=== PATIENT | female | born 1975 | race Asian ===

== ENCOUNTER 2017-04-23 18:23 | Outpatient (CLI) | payer BC ==
[~2017-04-23] VITALS: Ht 170.2 cm; Wt 75.0 kg
[2017-04-23 18:40] VITALS: Ht 170.2 cm; Wt 75.0 kg
[2017-04-23] MEDS ORDERED: PREN-93 PO (18:40)
[2017-04-23 18:41] VITALS: BP 97/68; PULSE 79; RESP 18
--- NOTE | 2017-04-23 19:32 | RADRPT ---
PROCEDURE: US OB. CLINICAL INDICATION: Estimated weight, low baseline. Clinical estimate gestational age is 3 8 weeks 4 days with estimated date of delivery 05/03/2017 TECHNIQUE: Multiple sonographic images of the pelvis were obtained. The images were reviewed on a PACS workstation. COMPARISON: No prior studies are available for comparison. FINDINGS: There is a single live intrauterine gestation. Cardiac activity is present with 148 beats per minut e. There is a cephalic position. Measurements were made in order to determine age. The results are as follows: BPD =9.7 cm, 39 weeks 5 days HC =34.12 cm, 39 weeks 2 days AC =34.13 cm, 38 weeks 0 days FL =7.46 cm, 38 weeks 1 day. Estimated gestational age of approximately 38 weeks 6 days. The estimated date of delivery is 05/01/2017. The EFW = 3488 g, 7 pounds 11 ounces, 62.6% The placenta is anterior and grade II. There is no evidence for an abruption. IMPRESSION: Single live intrauterine gestation of approximately 38 weeks 6 days based on ultrasound measurements . The estimated date of delivery is 05/01/2017 . RPTAT: HJES .Crow Shrestha MD, MD Date Time Electronically viewed and signed by .Crow Shrestha MD, on 04/23/2017 19:32 .S/
--- NOTE | 2017-04-23 19:32 | RADRPT ---
PROCEDURE: US OB biophysical profile. CLINICAL INDICATION: Evaluate well-being TECHNIQUE: Multiple sonographic images of the pelvis were obtained. The images were reviewed on a PACS workstation. COMPARISON: None FINDINGS: There is a single viable intrauterine gestation. There is a normal amount of amniotic fluid with an VINOD = 12.7 cm . Cardiac activity is present with 138 beats per minute There is a vertex presentation. The placenta is anterior. Biophysical profile: movement 2/2 tone 2/2. breathing 2/2 VINOD 2/2 Total 12/18 IMPRESSION: 1. Normal biophysical profile of 12/18. 2. Single viable intrauterine gestation in cephalic presentation. RPTAT:AAJJ Physician Lily Date Time Electronically viewed and signed by Physician Lily on 04/23/2017 19:32 /
--- NOTE | 2017-04-23 19:47 | PN ---
Triage Information Date/Time [birth year]/23/1704/28/1939 Reason for visit: low base line 120'2 with no acceleration with external stimulation Weeks of Gestation IUP 38w5d /Para Diabetes: none Hypertention: none Objective Vital Signs Date Time Temp Pulse Resp B/P Pulse Ox O2 Delivery O2 Flow Rate FiO2 04/23/17 18:41 98.3 79 18 97/68 98 Room Air Heart Rate: 120's Heart Rate Comments cat I tracing Contractions: >10 Minutes Apart Results/Medications Imaging Results BPP 8/8 NST reactiv VINOD 12.4 EFW 3400 > 60% Disposition: Discharge Assessment/Plan IUP 38w5d cat I tracing with BPP 8/8 Plan neonatalogy consutation regrading GBS pos patient who is reluctant to receive antibiotics Dr Patricio connected to patient for phone consultation see her at office in one week HAVEN VAUGHAN MD Apr 23, 2017 19:47
--- NOTE | 2017-04-23 20:54 | CONS ---
Date/Time of Note Date/Time of Note DATE: 04/23/17 TIME: 20:40 Assessment/Plan Assessment/Plan Additional Assessment/Plan Spoken to mom on phone and explained about risk for GBS sepsis with GBS positive vaginal culture and need for prophylactic antibiotics to minimise the risk for GBS sepsis and meningitis which could prove fatal . mom said ,she reviewed recommendations on website with GBS positive culture and does not want antibiotics unless we guarantee no chance for GBS sepsis, which can not be done . I called and updated about above conversation and answered her questions. Consultation Date/Type/Reason Admit Date/Time 04/23/1704/28/1939 Date of Consultation: Apr 23, 2017 Reason for Consultation GBS positive mom , 42yr old ,G1 admitted for low heart rate with no acceleration. gestational age 38 and 5/7 weeks. membranes intact . refused prophylactic antibiotics. Dr. Jesus Doyle requested the consult. Constitutional: improved, no complaints Eyes: no complaints ENT: no complaints Respiratory: no complaints Cardiovascular: no complaints Gastrointestinal: no complaints Genitourinary: no complaints Musculoskeletal: no complaints Skin: no complaints Neurologic: no complaints Endocrine: no complaints Lymphatic: no complaints Psychological: nl mood/affect, no complaints Immunologic: no complaints Social History Smoking Status: Never smoker Exam/Review of Systems Vital Signs Vitals Vital Signs Date Time Temp Pulse Resp B/P Pulse Ox O2 Delivery O2 Flow Rate FiO2 04/23/17 18:41 98.3 79 18 97/68 98 Room Air JAIR MAYES MD Apr 23, 2017 20:54
--- NOTE | 2017-04-23 21:10 | TRIAGE ---
OB Triage Datetime Report Generated by CPN: 04/23/2017 21:09 Datetime: 04/23/2017 19:53 Stage of : OB Triage Labor Evaluation Frequency: None noted or palpated Monitor Mode: External Resting Tone [place]: Relaxed Heart Rate FHR Baseline Rate: 140 Monitor Mode: External US Variability: Moderate 6-25 bpm Accelerations: 15X15 Decelerations: None Category: Category I Datetime: 04/23/2017 18:36 Assessment Type: Triage Maternal Assessment Level of Consciousness: Fully Conscious DTR's/Clonus: DTRs 2+; No Clonus Headache: Denies Blurred Vision: No Respiratory Effort: Unlabored; Regular Rhythm; Equal Expansion Breath Sounds, Left: Clear and Equal Breath Sounds, Right: Clear and Equal Nausea/Vomiting: Denies RUQ Epigastric Pain: Denies Lower Extremities Edema: None Degree: None Upper Extremities Edema: None Degree: None Facial Edema: None Fall Risk Assessment History of Falling: (0) No Secondary Diagnosis: (0) No Ambulatory Aid: (0) Bedrest/Nurse Assist IV Therapy: (0) No Gait: (0) Normal/Bedrest/Immobile Mental Status: (0) Oriented to Own Ability Fall Score: 0 Fall Risk Score Definition: No Risk: No action required Datetime: 04/23/2017 18:35 EGA: 38.4 Datetime: 04/23/2017 18:34 Time of Arrival: 04/23/2017 18:10 Arrived By: Ambulatory Arrived From: Home Chief Complaint: pt here for eval. of low baseline Movement: Present Contractions: Denies/Absent Rupture of Membranes: Denies Vaginal Bleeding: None Vaginal Discharge: Denies Recent Sexual Intercouse: Denies Abdominal Trauma: Not Applicable Patient Complaints: None Time Provider Notified: 04/23/2017 18:35 Provider Notified: ALEXUS Initial Plan: NST/BPP/EFW Datetime: 04/23/2017 18:33 Monitor Mode: External Monitor Mode: External US
== END 2017-04-23 20:01 | disposition home or self-care (01) ==
LOC: OBT 18:23 → L-D 18:25 → OBT 20:01
PROVIDERS: ATTEND Obstetrics & Gynecology
DX: O26.893 Other specified pregnancy related conditions, third trimester (principal); Z3A.38 38 weeks gestation of pregnancy; R00.1 Bradycardia, unspecified
CPT/HCPCS: 76815; 76818; G0463

== ENCOUNTER 2017-05-03 08:16 | Inpatient (IN) | payer BC ==
[~2017-05-03] VITALS: Ht 170.2 cm; Wt 76.1 kg
[~2017-05-03 08:16] MED LIST: PREN-93 PO
[2017-05-03 08:32] VITALS: Ht 170.2 cm; Wt 76.1 kg
[2017-05-03 08:33] VITALS: BP 114/74; PULSE 98
[2017-05-03] MEDS ORDERED: LIDOCAINE 1% (MPF) 30 ML INJ INJ PRN (09:30)
[2017-05-03] MEDS ORDERED: METHYLERGONOVINE 0.2 MG INJ IM PRN (09:30)
[2017-05-03] MEDS ORDERED: CARBOPROST 250 MCG INJ IM PRN (09:30)
[2017-05-03] MEDS ORDERED: BUTORPHANOL 2 MG INJ IV PRN ×2 (09:30)
[2017-05-03] MEDS ORDERED: OXYTOCIN 30 UNITS/LR 500 ML IV SCH ×2 (09:30)
[2017-05-03] MEDS ORDERED: MISOPROSTOL 200 MCG TAB PR PRN (09:30)
[2017-05-03] MEDS ORDERED: OXYTOCIN 30 UNITS/LR 500 ML IV PRN (09:30)
--- NOTE | 2017-05-03 10:03 | TRIAGE ---
OB Triage Datetime Report Generated by CPN: 05/03/2017 10:03 Datetime: 05/03/2017 09:08 Stage of : OB Triage Datetime: 05/03/2017 08:52 Stage of : OB Triage Datetime: 05/03/2017 08:39 Stage of : OB Triage Datetime: 05/03/2017 08:25 Stage of : OB Triage Assessment Type: Triage Maternal Assessment Level of Consciousness: Fully Conscious DTR's/Clonus: DTRs 2+; No Clonus Headache: Denies Blurred Vision: No Respiratory Effort: Unlabored; Regular Rhythm; Equal Expansion Breath Sounds, Left: Clear and Equal Breath Sounds, Right: Clear and Equal Nausea/Vomiting: Denies RUQ Epigastric Pain: Denies Facial Edema: None Temperature Route: Axillary Fall Risk Assessment History of Falling: (0) No Secondary Diagnosis: (0) No Ambulatory Aid: (0) Bedrest/Nurse Assist IV Therapy: (0) No Gait: (0) Normal/Bedrest/Immobile Mental Status: (0) Oriented to Own Ability Fall Score: 0 Fall Risk Score Definition: No Risk: No action required Labor Evaluation Frequency: 0 Monitor Mode: External Resting Tone [place]: Relaxed Interventions: Sterile Vaginal Exam Heart Rate FHR Baseline Rate: 145 Monitor Mode: External US Variability: Moderate 6-25 bpm Decelerations: None Category: Category I Pain Assessment Pain Scale: 7 Pain Presence: Intermittent Pain Type: Cramping; Contraction Pain Location: Abdomen Pain Goal: 3 Pain Relief Measures: Comfort Measures Vaginal Exam Dilatation (cms): 0.5 Effacement (%): 60 Station: -2 Exam By: Salome VICKY Membrane Status: Ruptured Membranes Rupture Method: Spontaneous Amniotic Fluid Color: Clear Amniotic Fluid Amount: Moderate Amniotic Fluid Odor: None Vaginal Bleeding: Scant Nitrazine: Positive Datetime: 05/03/2017 08:23 Time of Arrival: 05/03/2017 08:10 EGA: 40.2 Arrived By: Ambulatory Arrived From: Home Chief Complaint: C/O SROM AT APPROX 0530 WITH UC'S. SM AMT OF BLEEDING Movement: Present Contractions: Regular Contractions: 5 Rupture of Membranes: Ruptured Vaginal Bleeding: Scant Vaginal Discharge: Present Recent Sexual Intercouse: Denies Abdominal Trauma: Not Applicable Patient Complaints: Contractions Time Provider Notified: 05/03/2017 08:40 Provider Notified: ALEXUS Initial Plan: MONITOR, VE Datetime: 04/23/2017 19:53 Pain Assessment Pain Scale: 0 Pain Presence: None/Denies Pain Type: N/A Datetime: 04/23/2017 18:36 Fall Score: 0 Fall Risk Score Definition: No Risk: No action required Datetime: 04/23/2017 18:35 EGA: 38.6
[2017-05-03] MEDS ORDERED: AMPICILLIN 2 GM/NS (PMX) 100 ML ONE (10:41)
[2017-05-03] MEDS ORDERED: AMPICILLIN 2 GM/NS (PMX) 100 ML IVPB ONE (11:00)
[2017-05-03] MEDS: LACTATED RINGER'S 1,000 ML IV SCH ×3 (11:14→23:16)
--- NOTE | 2017-05-03 11:29 | HP ---
Date/Time of Note Date/Time of Note DATE: 05/03/17 TIME: 11:12 OB - History Hx of Present Free Text/Dictation 42 y.o primigravida at 40w2d presented to triage after bow broken at 0600 had course was complicated with multiple sx of ist trimester such as nausea cramping pain backpain etc more than usual later on another issue with positive status of GBS, discuss prophylactic treatment intrapartum is necessary which recommandation was disputed by her own information gathered by multiple sources..,led me to obtain another culture which also postive as expected, even obtain neonatalogy consultation regarding care for mom with GBS ,which can lead sepsis and desth, on admission still undecisive on prophylactic anibiotics,,persuade patient , finally agree to accept prophylacsis VE ftp /long/-3 EFM tracing CAT ! UC 3-5min Estimated Due Date: May 01, 2017 : 1 Para: 0 Spontaneous : 0 Therapeutic : 0 Ultrasounds: Normal mid trimester US Obstetrical Complications: None Medical Complications: None Past Family/Social History * Past Medical, Surgical, Family and Obstetric Histories reviewed from chart. Blood Type: B+ Rubella: immune RPR/VDRL: Negative GBS Status: Positive HBsAG: Negative OB Admission Exam Vital Signs Vital Signs Vital Signs Date Time Temp Pulse Resp B/P Pulse Ox O2 Delivery O2 Flow Rate FiO2 05/03/17 08:33 97.6 98 114/74 Physical Exam HEENT: WNL Heart: Rhythm Normal Lungs: Clear, Equal Abdomen: WNL Extremities: Normal Reflexes: Normal Cervical Dilatation: Fingertip Effacement: 50% Station: -1 Membranes: Ruptured Amniotic Fluid: Clear Heart Rate: 150's Accelerations: Accelerations Present Decelerations: No Decelerations Varibility: Moderate Contractions on Admission: < 5 Minutes Apart Intensity: Moderate OB Assessment/Plan Reason for admission: rupture of membranes Other Assessment: [id number]\ SROM in early labor Plan: Expectant Management Other plan: ampicillin HAVEN VAUGHAN MD May 03, 2017 11:26
--- NOTE | 2017-05-03 11:30 | RADRPT ---
PROCEDURE: Obstetrical ultrasound. CLINICAL INDICATION: , evaluation. Pelvic pain. Macrosomia TECHNIQUE: Transabdominal sonographic images of the uterus obtained after first trimester , greater than 14 weeks gestation. Single intrauterine gestation present. COMPARISON: US PELVIS 04/23/2017 FINDINGS: Single intrauterine gestation. There is a cephalic presentation. Measurements were made in order to determine age. The results are as follows: BPD = 39 weeks 0 day(s) HC = 39 weeks 4 day(s) AC = 39 weeks 6 day(s) FL = 39 weeks 2 day(s) VINOD = not measured Heart rate = 138 beats per minute The placenta is anterior. There is no evidence for an abruption or placenta previa. Ovaries are not visualized. IMPRESSION: Single intrauterine gestation of approximately 39 weeks 3 days by ultrasound criteria. [place] estimated weight = 3835 g; 68 percentile for gestational age of 40 weeks 0 days. RPTAT: AADD .Jose Larkin MD, MD Date Time Electronically viewed and signed by .Jose Larkin MD, on 05/03/2017 11:30 .B/
[2017-05-03 11:53] LABS: BASOPHILS % 0.2 % (0.0-2.0); EOSINOPHILS # 0.1 10^3/ul (0.0-0.5); EOSINOPHILS % 0.9 % (0.0-7.0); HEMATOCRIT 35.2 % (37.0-47.0); HEMOGLOBIN 11.8 g/dl (12.0-16.0); LYMPHOCYTES # 0.8 10^3/ul (0.8-2.9); LYMPHOCYTES % 8.8 % (15.0-51.0); MEAN CORPUSCULAR HEMOGLOBIN 31.1 pg (29.0-33.0); MEAN CORPUSCULAR HGB CONC 33.5 g/dl (32.0-37.0); MEAN CORPUSCULAR VOLUME 92.6 fl (82.0-101.0); MEAN PLATELET VOLUME 12.9 fl (7.4-10.4); MONOCYTE # 0.7 10^3/ul (0.3-0.9); MONOCYTES % 7.7 % (0.0-11.0); NEUTROPHIL # 7.5 10^3/ul (1.6-7.5); PLATELET COUNT 164 10^3/UL (140-415); RED CELL DISTRIBUTION WIDTH 12.9 % (11.5-14.5); WHITE BLOOD COUNT 9.1 10^3/ul (4.8-10.8)
[2017-05-03 12:22] LABS: INR 0.85; PROTIME 11.7 Sec (11.9-14.9); PT RATIO 0.9
[2017-05-03 12:23] LABS: PARTIAL THROMBOPLASTIN TIME 26.9 Sec (25.0-35.0)
[2017-05-03] MEDS: AMPICILLIN 1 GM/NS (PMX) 50 ML IVPB SCH ×3 (14:43→22:27)
[2017-05-03] MEDS ORDERED: FENTAnyl 2MCG/ML-ROPIV 0.2% 100 ML ONE (14:54)
[2017-05-03] MEDS ORDERED: ONDANSETRON 4 MG INJ IV PRN (15:30)
[2017-05-03] MEDS ORDERED: DIPHENHYDRAMINE 50 MG INJ IV PRN (15:30)
[2017-05-03] MEDS ORDERED: NALOXONE (0.4 MG/ML) INJ IV PRN (15:30)
[2017-05-03] MEDS ORDERED: FENTAnyl 2MCG/ML-ROPIV 0.2% 100 ML BAG EPI SCH (15:30)
[2017-05-04] MEDS: AMPICILLIN 1 GM/NS (PMX) 50 ML IVPB SCH (02:24)
--- NOTE | 2017-05-04 05:05 | LDN ---
Date/Time of Note Date/Time of Note DATE: 05/04/17 TIME: 05:03 Delivery Summary Weeks of Gestation 40w3d Placenta Delivered: Spontaneously Meconium: none Episiotomy: No Perineal laceration: 2 Laceration repair: 000ch gut Anesthesia type: Local Estimated blood loss: 200 Sponge & Needle done & correct: Yes All needle counts correct: Yes Any foreign bodies felt in the: No Problems: Infant Delivery Information Sex Infant Sex: male Apgars 1 Minute: 8 5 Minute: 9 Suctioning Nose & mouth suctioned at mj: Yes Delee suction performed: No Umbilical Cord Umbilical cord with: 3 Vessels Cord presentations: nuchal cord Nuchal cord present X: 1 Cord Blood was obtained: Yes Mother & Baby Disposition Disposition Mom & Baby to Maternity; Good: Yes Mom transferred to: Other Baby to NICU: No () HAVEN VAUGHAN MD May 04, 2017 05:05
[2017-05-04] MEDS ORDERED: IBUPROFEN 600 MG TAB PO PRN (05:40)
[2017-05-04 06:30] VITALS: BP 111/65; PULSE 97; RESP 18
[2017-05-04] MEDS ORDERED: OXYTOCIN 30 UNITS/LR 500 ML IV PRN (07:00)
[2017-05-04] MEDS ORDERED: OXYCODONE/ASPIRIN (4.88/325) TAB PO PRN ×2 (07:00)
[2017-05-04] MEDS ORDERED: MISOPROSTOL 200 MCG TAB PR PRN (07:00)
[2017-05-04] MEDS ORDERED: LANOLIN 7 GM TUBE TOP PRN (07:00)
[2017-05-04] MEDS ORDERED: CARBOPROST 250 MCG INJ IM PRN (07:00)
[2017-05-04] MEDS ORDERED: ZOLPIDEM 5 MG TAB PO PRN (07:00)
[2017-05-04] MEDS ORDERED: METHYLERGONOVINE 0.2 MG INJ IM PRN (07:00)
[2017-05-04] MEDS: BENZOCAINE 20% 56 ML SPRAY TOP PRN (07:13)
[2017-05-04] MEDS: WITCH HAZEL/GLYCERIN PAD PR PRN (07:13)
[2017-05-04 07:45] VITALS: BP 103/59; PULSE 97; RESP 18
[2017-05-04] MEDS: SENNA/DOCUSATE NA (8.6MG/50MG) TAB PO SCH ×2 (09:25→21:58)
[2017-05-04 11:30] VITALS: BP 96/60; PULSE 95; RESP 16
[2017-05-04] MEDS: IBUPROFEN 600 MG TAB PO SCH ×2 (11:30→17:49)
[2017-05-04 16:00] VITALS: BP 99/58; PULSE 92; RESP 16
[2017-05-04 20:00] VITALS: BP 99/61; PULSE 77; RESP 20
--- NOTE | 2017-05-04 20:58 | PN ---
Date/Time of Note Date/Time of Note DATE: 05/04/17 TIME: 20:56 OB Subjective Subjective Subjective sleeping OB Objective Objective Objective vss afebrile lochia ok OB Assessment/Plan Other Assessment: s/p stable Other plan: d/s home in am HAVEN VAUGHAN MD May 04, 2017 20:58
[2017-05-05] VITALS: BP 103/59; PULSE 81; RESP 18
[2017-05-05] MEDS: IBUPROFEN 600 MG TAB PO SCH ×4 (00:47→18:12)
[2017-05-05 04:00] VITALS: BP 87/55; PULSE 78; RESP 17
[2017-05-05] MEDS: WITCH HAZEL/GLYCERIN PAD PR PRN (06:50)
[2017-05-05] MEDS: BENZOCAINE 20% 56 ML SPRAY TOP PRN (06:50)
--- NOTE | 2017-05-05 07:35 | PN ---
Date/Time of Note Date/Time of Note DATE: 05/05/17 TIME: 07:34 OB Subjective Subjective Subjective no c/o OB Objective Objective Objective vss afebrile fundus firm non tender lochia mod calf neg OB Assessment/Plan Other Assessment: satisf Other plan: discharge home in am HAVEN VAUGHAN MD May 05, 2017 07:35
[2017-05-05 08:35] VITALS: BP 100/67; PULSE 80; RESP 18
[2017-05-05 08:53] LABS: BASOPHILS % 0.3 % (0.0-2.0); EOSINOPHILS # 0.1 10^3/ul (0.0-0.5); HEMATOCRIT 29.7 % (37.0-47.0); HEMOGLOBIN 9.9 g/dl (12.0-16.0); LYMPHOCYTES # 1.1 10^3/ul (0.8-2.9); LYMPHOCYTES % 9.5 % (15.0-51.0); MEAN CORPUSCULAR HEMOGLOBIN 31.3 pg (29.0-33.0); MEAN CORPUSCULAR HGB CONC 33.3 g/dl (32.0-37.0); MEAN PLATELET VOLUME 12.4 fl (7.4-10.4); MONOCYTE # 0.6 10^3/ul (0.3-0.9); MONOCYTES % 5.3 % (0.0-11.0); NEUTROPHIL # 9.7 10^3/ul (1.6-7.5); NEUTROPHILS % 83.4 % (39.0-77.0); PLATELET COUNT 126 10^3/UL (140-415); RED BLOOD COUNT 3.16 10^6/ul (4.20-5.40); RED CELL DISTRIBUTION WIDTH 13.2 % (11.5-14.5); WHITE BLOOD COUNT 11.7 10^3/ul (4.8-10.8)
[2017-05-05] MEDS: SENNA/DOCUSATE NA (8.6MG/50MG) TAB PO SCH ×2 (09:46→21:52)
[2017-05-05 13:44] VITALS: BP 104/65; PULSE 111; RESP 22
[2017-05-05 16:37] VITALS: BP 110/77; PULSE 81; RESP 22
[2017-05-05 19:55] VITALS: BP 106/69; PULSE 97; RESP 19
[2017-05-06] MEDS: IBUPROFEN 600 MG TAB PO SCH ×3 (00:05→11:51)
[2017-05-06 04:10] VITALS: BP 110/56; PULSE 69; RESP 19
[2017-05-06 08:35] VITALS: BP 99/69; PULSE 74; RESP 16
[2017-05-06] MEDS ORDERED: DIPHTH/TET/ACEL PERTUSS (ADULT) 0.5 ML VIAL IM* ONE (09:00)
[2017-05-06] MEDS: SENNA/DOCUSATE NA (8.6MG/50MG) TAB PO SCH (09:53)
--- NOTE | 2017-05-06 13:16 | DS ---
Date/Time of Note Date/Time of Note DATE: 05/06/17 TIME: 13:12 Obstetrical Discharge Record Final Diagnosis Final Diagnosis: Term delivered Vaginal Delivery Obstetrical Delivery: Spontaneous Complications Gestational Age at Rupture Post delivery day 2 Doing Well Afebrile Ambulatory Chest Clear Breasts are soft , Nipples are intact Abdomen is soft Fundus is firm Moderate amount of lochia Incision is clean ,No evidence of infection No calf tenderness No ankle edema Post C section day 2 Current Medications Medications (Trade) Dose Ordered Sig/[place] Route PRN Reason Start Time Stop Time Status Last Admin Dose Admin Lactated Ringer's (Lr) 1,000 ml @ 125 mls/hr Q8H IV 05/03/17 09:12 05/04/17 06:39 DC 05/03/17 23:16 Butorphanol Tartrate (Stadol) 1 mg Q2H PRN IV PAIN 05/03/17 09:30 05/04/17 06:39 DC Butorphanol Tartrate (Stadol) 2 mg Q2H PRN IV PAIN 05/03/17 09:30 05/04/17 06:39 DC Lidocaine 30 ml 30 ml ONCE PRN INJ EPISIOTOMY/TEARING 05/03/17 09:30 05/04/17 06:39 DC Oxytocin/Lactated Ringer's 500 ml @ 500 mls/hr ONCE POST IV 05/03/17 09:30 05/04/17 06:39 DC 05/04/17 04:41 Oxytocin/Lactated Ringer's 500 ml @ 125 mls/hr POST IV 05/03/17 09:30 05/04/17 06:39 DC 05/04/17 05:03 Oxytocin/Lactated Ringer's 500 ml @ 0 mls/hr ONCE PRN IV For Hemorrhage Management 05/03/17 09:30 05/04/17 06:39 DC Methylergonovine Maleate (Methergine) 0.2 mg ONCE PRN IM VAGINAL BLEEDING 05/03/17 09:30 05/04/17 06:39 DC Carboprost Tromethamine (Hemabate) 250 mcg ONCE PRN IM VAGINAL BLEEDING 05/03/17 09:30 05/04/17 06:39 DC Misoprostol 1000 mcg 1,000 mcg ONCE PRN IN VAGINAL BLEEDING 05/03/17 09:30 05/04/17 06:39 DC Ampicillin 100 ml @ ud STK-MED ONCE .ROUTE 05/03/17 10:41 05/03/17 10:42 DC Ampicillin 50 ml @ 100 mls/hr Q4H IVPB 05/03/17 15:00 05/04/17 06:39 DC 05/04/17 02:24 Ampicillin 100 ml @ 100 mls/hr ONCE ONCE IVPB 05/03/17 11:00 05/03/17 11:59 DC 05/03/17 11:14 Fentanyl/ Ropivacaine 100 ml @ STK-MED ONCE .ROUTE 05/03/17 14:54 05/03/17 14:55 DC Naloxone HCl (Narcan) 0.1 mg Q2M PRN IV FOR RESP RATE 8 OR LESS 05/03/17 15:30 05/04/17 06:39 DC Diphenhydramine HCl (Benadryl) 25 mg Q6H PRN IV ITCHING 05/03/17 15:30 05/04/17 06:39 DC Ondansetron HCl (Zofran Inj) 4 mg Q6H PRN IV NAUSEA AND/OR VOMITING 05/03/17 15:30 05/04/17 06:39 DC Fentanyl/ Ropivacaine 100 ml EPIDURAL INFUSION EPI 05/03/17 15:30 05/04/17 06:39 DC 05/03/17 23:24 Ibuprofen (Motrin) 600 mg ONCE PRN PO Mild Pain (Pain Score 1-3) 05/04/17 05:40 05/04/17 06:39 DC 05/04/17 05:43 Ibuprofen (Motrin) 600 mg Q6 PO 05/04/17 12:00 05/06/17 11:51 Oxycodone/Aspirin (Percodan) 1 tab Q3H PRN PO PAIN LEVEL 1-5 05/04/17 07:00 Oxycodone/Aspirin (Percodan) 2 tab Q3H PRN PO PAIN LEVEL 6-10 05/04/17 07:00 Zolpidem Tartrate (Ambien) 5 mg QHS PRN PO INSOMNIA 05/04/17 07:00 Senna/Docusate Sodium (Senokot-S) 1 tab BID PO 05/04/17 09:00 05/06/17 09:53 Witch Antonella/ Glycerin (Tucks Pads) 1 pad BEDSIDE MEDICATION PRN IN HEMORRHOID/EPISIOTMY PAIN 05/04/17 07:00 05/05/17 06:50 Benzocaine (Dermoplast [place]) 1 spray BEDSIDE MEDICATION PRN TOP HEMORRHOID/EPISIOTMY PAIN 05/04/17 07:00 05/05/17 06:50 Lanolin (Yva-M-Exbxwp) 1 applic BEDSIDE MEDICATION PRN TOP BEDSIDE FOR GENEVIEVE TO NIPPLES 05/04/17 07:00 05/04/17 07:13 Diphtheria/ Tetanus/Acell Pertussis 0.5 ml 0.5 ml ONCE ONCE IM* 05/06/17 09:00 05/06/17 09:01 DC 05/06/17 09:54 Oxytocin/Lactated Ringer's 500 ml @ 0 mls/hr ONCE PRN IV For Hemorrhage Management 05/04/17 07:00 Methylergonovine Maleate (Methergine) 0.2 mg ONCE PRN IM VAGINAL BLEEDING 05/04/17 07:00 Carboprost Tromethamine (Hemabate) 250 mcg ONCE PRN IM VAGINAL BLEEDING 05/04/17 07:00 Misoprostol (Cytotec) 1,000 mcg ONCE PRN IN VAGINAL BLEEDING 05/04/17 07:00 New born is doing well, Breast feeding Condition on Discharge Physical Assessment Last Vitals: perineal laceration is healing Voiding: Yes Bowel Movement: Yes Breast: Soft, non-tender Fundus: Firm Calf Tenderness: No Patient Condition: Good RADHA STEVENSON MD May 06, 2017 13:16
== END 2017-05-06 17:23 | disposition home or self-care (01) | DRG 775 ==
LOC: L-D 08:16 → OBT 08:16 → L-D 09:10 → OBT 09:26 → PP1 05-04 06:22
PROVIDERS: ADMIT Obstetrics & Gynecology; ATTEND Obstetrics & Gynecology
PROC: 4A1HXCZ Monitoring of Products of Conception, Cardiac Rate, External Approach (ICD-10-PCS; 2017-05-03)
PROC: 10E0XZZ Delivery of Products of Conception, External Approach (ICD-10-PCS; principal; 2017-05-04)
PROC: 0KQM0ZZ Repair Perineum Muscle, Open Approach (ICD-10-PCS; 2017-05-04)
PROC: 3E0234Z Introduction of Serum, Toxoid and Vaccine into Muscle, Percutaneous Approach (ICD-10-PCS; 2017-05-06)
DX: O48.0 Post-term pregnancy (principal); O70.1 Second degree perineal laceration during delivery; O99.824 Streptococcus B carrier state complicating childbirth; Z37.0 Single live birth; Z3A.40 40 weeks gestation of pregnancy; Z23 Encounter for immunization
CPT/HCPCS: 62319; 76815; 85025; 85610; 85730; 86592; 86900; 86901; 90715; 99464; G0463; J0290; J2590; J3010; J7120